=== PATIENT | male | born 1965 | race African-American/Black ===

== ENCOUNTER 2018-03-25 01:09 | Emergency (ER) | payer MEDICARE, OTHER ==
[2018-03-25 01:38] LABS: #Lymphocytes 2.3 thou/uL (1.20-3.40); #Monocytes 0.6 thou/uL (0.11-0.59); %Basophils 0.7 % (0.0-1.0); %Eosinophils 0.4 % (0.0-10.0); %Lymphocytes 32.6 % (21.0-51.0); %Monocytes 8.8 % (0.0-10.0); %Neutrophils 57.6 % (42.0-75.0); Mean Corpuscular HGB CONC 33.8 g/dL (32.0-36.0); Mean Corpuscular Hemoglobin 32.1 pg (27.0-31.0); Mean Corpuscular Volume 94.8 fL (78.0-98.0); Mean Platelet Volume 8.5 fL (7.4-10.4); Platelet Count 187 thou/uL (130-400); RBC Distribution Width 12.9 % (11.5-14.5); Red Blood Cell (RBC) Count 3.75 mill/uL (4.70-6.10); White Blood Cell (WBC) Count 6.9 thou/uL (4.8-10.8)
[2018-03-25 01:43] LABS: Prothrombin Time 12.9 SEC (12.0-14.7)
[2018-03-25 01:45] LABS: D-Dimer Test 0.95 *mcg/mL (0.27-0.43)
[2018-03-25 01:59] LABS: ALT (SGPT) 18 U/L (8-55); AST (SGOT) 27 U/L (5-34); Albumin 4.2 g/dL (3.5-5.0); Alkaline Phosphatase 66 U/L (40-150); Anion Gap 16 mmol/L (10-20); BUN (Urea Nitrogen) 17 mg/dL (8.4-25.7); Bilirubin, Total 0.5 mg/dL (0.2-1.2); CK (CPK) 137 U/L (30-200); Calc. Creatinine Clearance 0 mL/min (70-130); Calcium 8.7 mg/dL (7.8-10.44); Carbon Dioxide 17 mmol/L (22-29); Chloride 105 mmol/L (98-107); Estimated GFR-MDRD 49; Globulin 3.1 g/dL (2.4-3.5); Glucose 95 mg/dL (70-105); Protein, Total 7.3 g/dL (6.0-8.3); Sodium 134 mmol/L (136-145)
[2018-03-25 02:03] LABS: CKMB 2.4 ng/mL (0-6.6); Troponin I 0.042 ng/mL (< 0.028)
[2018-03-25] MEDS ORDERED: Nitroglycerin 0.4 MG TAB (25 Tab Bottle) ONE (02:15)
[2018-03-25] MEDS ORDERED: Enoxaparin Sodium 40 MG/0.4 ML SYRINGE ONE (02:15)
[2018-03-25] MEDS ORDERED: Furosemide 40 MG/4 ML VIAL ONE (02:15)
[2018-03-25] MEDS ORDERED: Enoxaparin Sodium 60 MG/0.6 ML SYRINGE ONE (02:16)
--- NOTE | 2018-03-25 08:58 | RAD ---
PORTABLE CHEST: Date: 03/25/18 PROVIDED CLINICAL HISTORY: Dyspnea. FINDINGS: Comparison with 01/11/17. Cardiac silhouette appears enlarged. Pulmonary vasculature is upper limits of normal. No focal consol idation, pleural fluid, or pneumothorax apparent. IMPRESSION: Cardiomegaly without evidence for an acute cardiopulmonary process. POS: [facility]
== END 2018-03-25 02:40 | disposition left against medical advice (07) ==
LOC: ERS 01:09
DX: R06.02 Shortness of breath (principal); I12.0 Hypertensive chronic kidney disease with stage 5 chronic kidney disease or end stage renal disease; N18.6 End stage renal disease; Z99.2 Dependence on renal dialysis; F17.210 Nicotine dependence, cigarettes, uncomplicated
CPT/HCPCS: 71045; 80053; 82553; 83880; 84484; 85025; 85379; 85610; 85730; 93005; 94640; 94760; 96361; 96374; J1650; J1940; J7620

== ENCOUNTER 2018-05-08 13:02 | Outpatient (CLI) | payer MEDICARE, OTHER ==
--- NOTE | 2018-05-08 14:38 | CT ---
CT ABDOMEN AND PELVIS WITHOUT IV CONTRAST: Technique: Multiple axial tomograms were obtained through the abdomen and pelvis without IV enhanceme nt. Indications: Atherosclerosis of both lower extremities. Claudication. History of kidney disease. IV c ontrast was not administered due to renal status. Comparison: None. FINDINGS: Lung bases appear clear. There is cardiomegaly. Liver, spleen, and pancreas appear unremarkable on unenhanced exam. Adrenal glands unremarkable. Kidneys show no evidence of hydronephrosis. There are tiny calcifications in the lower pole collectin g structures of the right kidney. Ureters are normal caliber. Urinary bladder is mildly distended and unremarkable. Small bowel loops normal caliber. Appendix unremarkable. Colon unremarkable. The transverse and left colon is nondistended and not adequately evaluated by CT. The aorta shows diffuse atherosclerotic calcifications. The aorta is diffusely ectatic measuring up t o 2.5 cm in AP dimension in the midabdominal aorta. In the mid and lower abdominal aorta there is neftaly dence of diffuse calcified plaque in the aorta which shows evidence of severe luminal stenosis. There is calcification of the lower abdominal aorta and visualized iliac artery with diffuse calcifie d plaque in the iliac arteries suggesting severe stenosis. IMPRESSION: 1. Diffuse atherosclerotic calcifications and ectasia involving the abdominal aorta. Calcified plaque in the mid abdominal aorta results in evidence of severe luminal narrowing. There is calcified plaqu e extending into the right renal artery suggesting stenosis and calcified plaque at the origin of the left renal artery suggesting severe stenosis. Calcified plaque in the iliacs suggests significant st enosis. MRA of the abdominal aorta might be considered if patient cannot have iodinated contrast to a ssess blood flow in the abdominal aorta. 2. Soft tissues show small calcifications in the lower pole of the right kidney. No other significant soft tissue abnormality identified on this unenhanced study. POS: [facility]
== END 2018-05-08 13:03 | disposition home or self-care (01) ==
LOC: BICCT 13:02
PROVIDERS: ATTEND Thoracic Surgery (Cardiothoracic Vascular Surgery)
DX: I70.213 Atherosclerosis of native arteries of extremities with intermittent claudication, bilateral legs (principal); I70.0 Atherosclerosis of aorta; I77.811 Abdominal aortic ectasia; I70.1 Atherosclerosis of renal artery; I70.8 Atherosclerosis of other arteries; N28.89 Other specified disorders of kidney and ureter
CPT/HCPCS: 74176

== ENCOUNTER 2019-02-25 09:35 | Inpatient (IN) | payer MEDICARE, OTHER ==
[2019-02-25] MEDS ORDERED: Furosemide 40 MG/4 ML VIAL ONE (09:45)
[2019-02-25] MEDS ORDERED: Nitroglycerin 2% Ointment 1 INCH/1 GM Packet ONE (09:45)
[2019-02-25] MEDS ORDERED: Nitroglycerin 0.4 MG TAB 1 EACH ONE (09:45)
[2019-02-25 10:20] LABS: Analyzer IN Cardio ER; Base Excess (BEa) -6.1 mEq/L (-2.0 to +3.0); Calcium, Ionized 1.09 mmol/L (1.12-1.30); Carboxyhemoglobin (COHb) 0.9 gm% (0.0-3.0); Hemoglobin (Hb) 11.9 g/dL (14.0-18.0); Potassium - ABG Lab 3.75 mmol/L (3.70-5.30); pH, Arterial 7.42 (7.35-7.45)
[2019-02-25 10:21] LABS: O2 Tension (PaO2) 57.2 mmHg (80.0-100.0)
[2019-02-25 10:36] LABS: #Basophils 0.1 thou/uL (0.0-0.2); #Lymphocytes 1.7 thou/uL (1.20-3.40); #Monocytes 0.7 thou/uL (0.11-0.59); #Neutrophils 6.3 thou/uL (1.40-6.50); %Basophils 0.8 % (0.0-1.0); %Eosinophils 0.4 % (0.0-10.0); %Lymphocytes 19.2 % (21.0-51.0); %Monocytes 7.9 % (0.0-10.0); %Neutrophils 71.7 % (42.0-75.0); Mean Corpuscular HGB CONC 32.8 g/dL (32.0-36.0); Mean Corpuscular Hemoglobin 29.9 pg (27.0-31.0); Mean Corpuscular Volume 91.2 fL (78.0-98.0); Mean Platelet Volume 7.2 fL (7.4-10.4); Platelet Count 263 thou/uL (130-400); RBC Distribution Width 15.3 % (11.5-14.5); Red Blood Cell (RBC) Count 4.02 mill/uL (4.70-6.10); White Blood Cell (WBC) Count 8.7 thou/uL (4.8-10.8)
--- NOTE | 2019-02-25 10:43 | RAD ---
Exam: Chest one view HISTORY:Chest pain Comparison: 03/25/2018 FINDINGS: Lungs: Multiple focal consolidation of the mid inferior right lung, alveolar and interstitial in appe arance. Cardiac silhouette:Enlarged Pulmonary vessels: Prominent central pulmonary vasculature Pleural Spaces: Blunted costophrenic sulci bilaterally, with flattened hemidiaphragms Pneumothorax: None Vascular calcification. Osseous abnormalities: None of acuity. IMPRESSION: Consolidation of the right lung which may relate to an atypical pneumonia. Correlate clin ically. Enlarged cardiac silhouette with vascular congestion. Correlate for evidence of CHF. Recommend follow-up to resolution.
[2019-02-25 11:01] LABS: ALT (SGPT) 15 U/L (8-55); AST (SGOT) 27 U/L (5-34); Albumin 4.4 g/dL (3.5-5.0); Alkaline Phosphatase 90 U/L (40-150); Anion Gap 23 mmol/L (10-20); BUN (Urea Nitrogen) 41 mg/dL (8.4-25.7); Bilirubin, Total 0.9 mg/dL (0.2-1.2); Calc. Creatinine Clearance 0 mL/min (70-130); Calcium 9.2 mg/dL (7.8-10.44); Carbon Dioxide 17 mmol/L (22-29); Chloride 107 mmol/L (98-107); Estimated GFR-MDRD 31; Globulin 3.3 g/dL (2.4-3.5); Glucose 146 mg/dL (70-105); Potassium 4.5 mmol/L (3.5-5.1); Protein, Total 7.7 g/dL (6.0-8.3); Sodium 142 mmol/L (136-145)
[2019-02-25 11:17] LABS: CKMB 1.9 ng/mL (0-6.6)
--- NOTE | 2019-02-25 13:18 | HP ---
CHIEF COMPLAINT: "I can't breathe and having chest pain." HISTORY OF PRESENT ILLNESS: Mr. Willoughby is a 53-year-old gentleman, who has chronic systolic as well as diastolic heart failure. His last ejection fraction was approximately less than 20% done in December of this year at [facility]. He says that he had gone to the [facility] about 2 months ago for what sounds like a CHF exacerbation. They were unable to treat him there, so he got transferred to [facility] in the [facility]. There, he says he was there for several weeks. He says that he had multiple tests done and had been placed on a Primacor drip. He says that he was going in and out of congestive heart failure and in and out of atrial fibrillation. He says that they had wanted him to be on the Primacor drip for about 60 days, and at that time, they were going to reassess him for a possible defibrillator. However, they could not find anybody to manage the drip once he was discharged, and apparently, they just discharged him home. They did put him on Entresto as a new medication and made some other adjustments in his medicines. He says he apparently had a court date that he missed because he was in the hospital, and he apparently got picked up and put in care home on the of this month. He says that once he was in care home, he did not get any of his medications and had been out of his medicines for the past few days. Apparently, he must have been in care home because he said he woke up short of breath and was asking "them to help him and they didn't." He was also noticing some pains in his chest as well. Apparently at some point, he was brought to the emergency room, where he was found to have an elevated BNP. Chest x-ray showed findings consistent with pulmonary edema, and he is being admitted for treatment of this. Currently, he is on BiPAP and he is starting to feel a little bit better, but he still has some chest discomfort. He also notes some swelling in his legs and he mentioned off and on palpitations in the past. REVIEW OF SYSTEMS: CONSTITUTIONAL: There has been no fevers or chills. No night sweats. No weight loss. HEENT: No headaches. No dizziness. No visual changes. No sore throat, rhinorrhea, neck pain. No adenopathy. PULMONARY: No hemoptysis. No cough. No wheezing. CARDIOVASCULAR: As in history of present illness. GASTROINTESTINAL: No abdominal pain. No nausea. No vomiting. No change in bowels. GENITOURINARY: No urinary frequency or hematuria. No hesitancy. NEUROLOGIC: No focal weakness or numbness. No seizures. PSYCHIATRIC: No symptoms of anxiety or depression. SKIN AND INTEGUMENT: No skin changes. No rash. ENDOCRINE: No heat or cold intolerance. PAST MEDICAL HISTORY: Significant for chronic systolic heart failure, ejection fraction was estimated at less than 20%. He also had grade 3/3 diastolic dysfunction, hypertension, chronic kidney disease, diabetes mellitus type 2, as well as peripheral vascular disease. PAST SURGICAL HISTORY: He has had hernia repair. ALLERGIES: NO KNOWN DRUG ALLERGIES. SOCIAL HISTORY: He says he lives in [facility]. He says he has a live-in provider and Home Health. He is single, no children and he is a former smoker. He says he does admit to drinking some alcohol, and occasional smokes of marijuana. FAMILY HISTORY: He says his sister recently of congestive heart failure. CURRENT MEDICATIONS: He says that they were given to the nursing staff, what was seen in the emergency room records include, 1. Amiodarone 200 mg once daily. 2. Amlodipine 10 mg once a day. 3. Bumetanide 1 mg daily. 4. Hydralazine 50 mg twice a day. 5. [place] 10/325 p.r.n. 6. Isosorbide mononitrate extended release 120 mg daily. 7. Nitrostat 0.4 sublingual p.r.n. 8. MiraLAX p.r.n. 9. Entresto. 10. Trazodone 50 mg daily. 11. Plavix 75 mg. 12. ProAir inhaler. PHYSICAL EXAMINATION: GENERAL: He is alert and oriented. He is in no acute distress. He is a bit agitated at times and will be sometimes verbally abusive, yelling out answers, etc. VITAL SIGNS: Blood pressure is 119/85, heart rate is 116, respiratory rate of 26, and he is afebrile. HEENT: Pupils are equal, round, and reactive. Extraocular muscles are intact. His sclerae are anicteric. Throat, there is no erythema, no exudates. NECK: No adenopathy. No bruits. LUNGS: He has rales throughout both lungs. CARDIOVASCULAR: He is tachycardic. His PMI is laterally displaced, and he does have a positive S3. I was not able to assess any murmurs, clicks, or rubs. ABDOMEN: Soft. It is slightly distended. It is tympanic to percussion. There is no rebound or guarding. EXTREMITIES: There is no clubbing or cyanosis. He does have 2+ pitting edema. NEUROLOGICAL: His cranial nerves are 2 through 12 are intact, and muscle strength is intact. SKIN AND INTEGUMENT: No skin changes. No rash. LABORATORY RESULTS: Chemistry; sodium is 142, potassium is 4.5, chloride is 107, CO2 is 17, BUN of 41, creatinine is 2.6, glucose is 146. BNP is 16,143. The white blood cell count is 8.7, hemoglobin is 12, hematocrit is 36.6, and platelet count is 263. IMAGING STUDIES: His chest x-ray, and this is by my reading, he has cardiomegaly, increased pulmonary vascular markings. The film was little bit rotated, and the infiltrate or airspace disease is more on the right than the left. ASSESSMENT: This is a 53-year-old gentleman, who presents with, 1. Acute respiratory failure with hypoxemia, likely as a result of acute on chronic systolic heart failure exacerbation, and this is likely due to him being without his medications for several days. Since he is requiring BiPAP, he will be admitted to the ICU. We will continue BiPAP and to continue IV Lasix. Once his medications are reconciled, we will restart them as appropriate. We will consult Cardiology. Due to the severity of his disease, he maybe a candidate for defibrillator placement at this time. 2. Hypertension. Currently, his blood pressure is stable. We will restart his medications after we start Entresto to avoid hypotension. 3. Diabetes mellitus. We will need to reconcile his medications for diabetes. I did not see any listed among his regular medications. In the meantime, we will place him on a sliding scale insulin, and he will be getting a Critical Care consult as he is being admitted to the ICU. 4. Deep vein thrombosis and gastrointestinal prophylaxis will also be provided. Job ID: [id number]
[2019-02-25] MEDS ORDERED: Dextrose 50% Abboject 50 ML SYRINGE SLOW IVP PRN (13:41)
[2019-02-25] MEDS ORDERED: hydrALAZINE 20 MG/ML VIAL SLOW IVP PRN (13:41)
[2019-02-25] MEDS ORDERED: Dextrose 5% in Water 1,000 ML IV PRN (13:41)
[2019-02-25] MEDS ORDERED: HumaLOG 300 UNITS/3 ML VIAL SC PRN ×2 (13:41)
[2019-02-25 14:28] VITALS: BMI 20.9
[2019-02-25] MEDS ORDERED: Heparin 5,000 UNITS/ML VIAL SC SCH (15:00)
[2019-02-25] MEDS: Furosemide 40 MG/4 ML VIAL SLOW IVP SCH (15:11)
[2019-02-25] MEDS: Heparin 5,000 UNITS/ML VIAL SC SCH ×2 (15:13→21:17)
--- NOTE | 2019-02-25 17:05 | CON ---
DATE OF CONSULTATION: HISTORY OF PRESENT ILLNESS: A 53-year-old gentleman, who came from the long term system today with acute respiratory distress. He is in the ICU. He is on a BiPAP. He had a chest x-ray taken, which shows pulmonary edema. He states he has been in the long term system now for several days and apparently 3 days, has not received any of his medication. He was recently seen at [facility] for cardiomyopathy. He has a LifeVest in place. He was on a Primacor drip at [facility] and started on Entresto and apparently he missed a court date of any fpc. He did medication. His BNP was 16,000. He has been in this institution many times. PAST MEDICAL HISTORY: 1. Acute on chronic congestive heart failure. 2. Renal failure. 3. Diabetes, peripheral vascular disease. MEDICATIONS: His list of medicine comes with a package, which includes: 1. Amiodarone 200 once a day. 2. Amlodipine 10. 3. Bumetanide 1 mg. 4. Hydralazine 50. 5. [place]. 6. Ismo 120. 7. Nitrostat. 8. MiraLAX. 9. Entresto. 10. Trazodone 50. 11. Plavix 75. 12. Rescue inhaler. SOCIAL HISTORY: History of tobacco abuse. Drinks some alcohol. Smokes some marijuana. REVIEW OF SYSTEMS: Otherwise unremarkable. He is cachectic. Poor dental hygiene. PHYSICAL EXAMINATION: VITAL SIGNS: Sats are 98% on a BiPAP, blood pressure 112/70, respiratory rate 18, pulse 80, afebrile. CHEST: Extensive rhonchi and crackles bilaterally. CARDIAC: Normal S1 and S2. No gallops. ABDOMEN: No masses. LABORATORY DATA: Creatinine 2.62. X-ray shows cardiomegaly, CHF. A pO2 of 57, pCO2 BiPAP. White count 18,000. Hemoglobin and hematocrit unremarkable. IMPRESSION: 1. Acute on chronic respiratory failure, congestive heart failure, decompensated because of inability to take medication in the fpc. 2. Tobacco abuse. 3. Alcohol intake. 4. Marijuana intake. I agree with present treatment. Await input from Cardiology. Continue neb treatments, supportive care. We will follow. Once improved, we will try to take him off a BiPAP. This is a 30-minute critical care time in the ICU. Job ID: [id number]
[2019-02-25] MEDS: Carvedilol 3.125 MG TAB PO SCH (17:07)
--- NOTE | 2019-02-25 23:26 | CON ---
DATE OF CONSULTATION: 02/25/2019 INDICATION FOR CONSULTATION: A 53-year-old gentleman with history of cardiomyopathy and CHF exacerbation. HISTORY OF PRESENT ILLNESS: This is a very unfortunate 53-year-old gentleman, who has a history of systolic and diastolic heart failure. His ejection fraction has been estimated at about actually less than 20%. He was recently seen at [facility] in [place] and apparently underwent an echocardiogram there, which showed ejection fraction to be severely compromised. He also had a cardiac catheterization performed, unfortunately we do not have the results of the cardiac catheterization, but it appears that he has probably had an angioplasty and possible stent placement. He has been placed on Plavix. He was noted to have significant diastolic dysfunction on the echocardiogram with a grade 3 diastolic dysfunction with significantly elevated PA pressures. The right chamber was mildly dilated. The right ventricle was mildly dilated and the heart size was not significantly, it was only mildly dilated, but left atrium was [id number] enlarged at 4.8 cm. He presented here after he was released from their facility about 2 weeks ago and apparently was then incarcerated and is now brought to our facility after he complained of increasing shortness of breath and chest discomfort. It appears that, according to him, he was not getting his medications while he was incarcerated. He was supposed to be taking amiodarone, amlodipine, bumetanide, hydralazine as well as isosorbide mononitrate, nitroglycerin. He was taking polyethylene glycol as well as Entresto, trazodone. He was taking Plavix and ProAir. Without these medications, it is possible he could have had ischemia and worsening of congestive heart failure. Certainly, if he has had a recent stent placed, he is at risk of having acute stent thrombosis without being on the Plavix. At this time, he is resting comfortably. He is on a BiPAP mask and is relatively comfortable. He did not offer any complaints to me. He denied any chest pain. His EKG shows a sinus tachycardia with a right bundle-branch block and nonspecific EKG changes. His cardiac enzymes are still indeterminate at 0.054 for the troponin. His BNP was severely elevated at 16,143. Blood sugar was 146. His MB was only 1.9. There is no indication he suffered any significant myocardial infarction at this time. We will continue to monitor the patient. Mainly, he will need to be diuresed and put back on his medications for his congestive heart failure and hopefully his O2 saturations will improve. With the BiPAP, he does not yet meet the requirements for intubation. PAST MEDICAL HISTORY: Other than what is noted above, please refer the notes dictated by the nurse practitioner. SOCIAL HISTORY: Other than what is noted above, please refer the notes dictated by the nurse practitioner. FAMILY HISTORY: Other than what is noted above, please refer the notes dictated by the nurse practitioner. REVIEW OF SYSTEMS: Other than what is noted above, please refer the notes dictated by the nurse practitioner. ALLERGIES: OTHER THAN WHAT IS NOTED ABOVE, PLEASE REFER THE NOTES DICTATED BY THE NURSE PRACTITIONER. MEDICATIONS: Other than what is noted above, please refer the notes dictated by the nurse practitioner. PHYSICAL EXAMINATION: GENERAL: Reveals an elderly, thin gentleman, who actually appears older than his stated age. VITAL SIGNS: He is somewhat hypothermic. Temperature is 97, heart rates in the 80s and shows a sinus rhythm with a right bundle-branch block. Blood pressure 122/81, respiratory rate is about 23, and O2 saturation is about 95% on the BiPAP mask at this time. HEENT: Shows the head to be normocephalic and atraumatic. I cannot hear any significant bruits. He does have upper airway noise associated with his BiPAP mask. CHEST: Has some decreased breath sounds and some mild crackles in the right base. CARDIOVASCULAR: Heart sounds are somewhat distant, but he has an S1 and S2. I cannot hear any significant S3 or S4. He has a systolic murmur at the apex. ABDOMEN: Soft and nontender. Positive bowel sounds are present. EXTREMITIES: Show 1+ lower extremity edema. Pedal pulses are difficult to palpate. NEUROLOGIC: The patient is somewhat unwilling to carry on a full examination, but in conversation, but otherwise I do not notice any gross focal motor deficits. SKIN: Warm and dry at this time. LABORATORY DATA: His creatinine is 2.6, potassium 4.5. Hematocrit 36.6, and platelet count was 263,000. Sodium was 142. As noted above, the cardiac enzymes are still indeterminate. IMPRESSION: 1. Acute respiratory failure associated with systolic as well as diastolic heart failure and gentleman who has not been taking his medications as prescribed due to being incarcerated. We will resume his medications. Diuresis will be undertaken and hopefully the patient will recover. He has a severe decrease in left ventricular systolic function, which is not new. Ejection fraction less than 20%. Eventually, will need to undergo probably an AICD implant if he is a candidate to have a LifeVest. We will need to continue to follow him. 2. Hypertension. At this time, he is under good control as soon as he was able to get him back on his routine medications and this would also we may benefit the patient for his congestive heart failure. 3. Diabetes, which will be dealt with the primary care service. 4. Probable coronary artery disease, we do not have a recent cardiac catheterization, but there is some indication that he underwent a cardiac catheterization with angioplasty, whether or not a stent was placed is unclear. We are uncertain as to which vessels nor we are uncertain the remaining details of the cardiac catheterization. We will need to obtain this information to better assist the patient. Job ID: [id number]
[2019-02-26 04:35] LABS: #Lymphocytes 1.4 thou/uL (1.20-3.40); #Monocytes 0.5 thou/uL (0.11-0.59); #Neutrophils 4.8 thou/uL (1.40-6.50); %Basophils 0.7 % (0.0-1.0); %Eosinophils 0.5 % (0.0-10.0); %Lymphocytes 20.4 % (21.0-51.0); %Monocytes 7.7 % (0.0-10.0); %Neutrophils 70.7 % (42.0-75.0); Hemoglobin 10.1 g/dL (14.0-18.0); Mean Corpuscular HGB CONC 33.7 g/dL (32.0-36.0); Mean Corpuscular Hemoglobin 30.9 pg (27.0-31.0); Mean Corpuscular Volume 91.7 fL (78.0-98.0); Mean Platelet Volume 6.9 fL (7.4-10.4); Platelet Count 202 thou/uL (130-400); RBC Distribution Width 15.1 % (11.5-14.5); Red Blood Cell (RBC) Count 3.26 mill/uL (4.70-6.10); White Blood Cell (WBC) Count 6.8 thou/uL (4.8-10.8)
[2019-02-26 04:48] LABS: Anion Gap 17 mmol/L (10-20); BUN (Urea Nitrogen) 43 mg/dL (8.4-25.7); Calc. Creatinine Clearance 24 mL/min (70-130); Carbon Dioxide 25 mmol/L (22-29); Chloride 104 mmol/L (98-107); Estimated GFR-MDRD 32; Glucose 88 mg/dL (70-105); Potassium 3.9 mmol/L (3.5-5.1); Sodium 142 mmol/L (136-145)
[2019-02-26] MEDS: Furosemide 40 MG/4 ML VIAL SLOW IVP SCH ×2 (06:16→14:29)
[2019-02-26] MEDS: Acetaminophen 325 MG TAB PO PRN ×2 (06:16→17:21)
[2019-02-26] MEDS: Carvedilol 3.125 MG TAB PO SCH ×2 (08:20→17:17)
[2019-02-26] MEDS: Amiodarone 200 MG TAB PO SCH (08:20)
[2019-02-26] MEDS: Heparin 5,000 UNITS/ML VIAL SC SCH ×3 (08:20→20:53)
--- NOTE | 2019-02-26 08:21 | CON ---
DATE OF CONSULTATION: PRIMARY CARE PHYSICIAN: Dr. Mata. PRIMARY ILLUMINATOR: Dr. Longoria at the [facility]. Primary lunchroom monitor here at [place] is going to be Dr. Reyes. REASON FOR CARDIOLOGY CONSULT: CHF exacerbation with BNP more than 16,000. HISTORY OF PRESENT ILLNESS: Mr. Willoughby is a 53-year-old male with significant history of chronic combined heart failure, chronic kidney disease, hypertension, diabetes type 2, and peripheral vascular disease. The patient was hospitalized for combined heart failure at [facility] since December to February 2019. According to the patient, at this moment, the patient cannot give any information due to severe shortness of breath, wears BiPAP. The patient's information was obtained from the patient's medical record from [facility] in [place]. The patient was discharged with Entresto twice a day with LifeVest, but he was not taking those medicine for last 3 days since the patient was in the [facility]. He started having worsening of shortness of breath since yesterday. After the patient was released from the [facility], the patient was transferred to [facility] [place], [place], for worsening of shortness of breath and complained of chest pain. The patient was found to have BNP more than 16,000. At this moment, the patient denied chest pain, but the patient has been really having hard time to talk due to the severe dyspnea on mild exertion, but according to the patient's record from [facility], the patient had a 2D echo on January 05, 2019, with EF less than 20%, grade 3 diastolic dysfunction, SPAP 45 to 50 mmHg, mild RVE, severely enlarged LA, mild mitral valve regurgitation, mild to moderate tricuspid regurgitation, and mild pulmonary valve regurgitation. According to the record, the patient underwent a cardiac catheterization on January 07, 2019; however, there is no record for the results. However, since the patient is not on antiplatelet medication, the patient might not have any intervention with a cardiac catheterization at that time. The patient's chest x-ray on February 25, shows possible atypical pneumonia, enlarged cardiac silhouette with vascular congestion, correlate for the evidence of CHF. PAST MEDICAL HISTORY: Chronic systolic and diastolic heart failure, hypertension, chronic kidney disease, diabetes type 2, and PVD. PAST SURGICAL HISTORY: Hernia repair. FAMILY HISTORY: The patient's sister due to congestive heart failure. SOCIAL HISTORY: He is single. No children. He is an ex-smoker. He admits to drinking some alcohol and occasional marijuana smoking. ALLERGIES: HE HAS NO KNOWN DRUG ALLERGIES. CURRENT MEDICATIONS: 1. Amiodarone 200 mg once a day. 2. Amlodipine 10 mg once a day. 3. Bumetanide 1 mg twice a day. 4. Hydralazine 100 mg 3 times a day. 5. Hydrocodone with acetaminophen 10/325 every 6 hours as needed. 6. Isosorbide 120 mg once a day. 7. Nitroglycerin 0.4 sublingual as needed. 8. MiraLAX once a day as needed. 9. twice a day. 10. Trazodone 50 mg half tablet once a day. 11. Plavix 75 mg once a day. 12. ProAir as needed for wheezing. REVIEW OF SYSTEMS: Noncontributory due to severe shortness of breath at this moment. PHYSICAL EXAMINATION: VITAL SIGNS: Heart rate about sinus tachycardia 90s to 110s. GENERAL: The patient is alert and oriented x4. The patient is really having difficulty breathing at this moment with BiPAP. HEENT: Normocephalic and atraumatic. Eyes, extraocular muscle movement intact. ENT and mouth, unable to exam due to the BiPAP. Ears, no discharge from bilateral ears. No JVD. NECK: Supple. Normal range of motion. LUNGS: Coarse and rales throughout both lungs. CARDIOVASCULAR: Regular rate and rhythm. Normal S1 and S2. There is no S3 or S4. No significant murmur, hives, or thrill noted. EXTREMITIES: 2+ pulses in the bilateral upper extremities. Unable to examine the lower extremities since the patient refused. No edema from observation, again the patient refused to let palpate the patient's lower extremity at this moment. ABDOMEN: Unable to exam at this moment since the patient refused to palpate in the stomach. SKIN: Warm and dry. No lesion. Arrhythmia noticed. Rash noted. NEUROLOGIC: The patient is alert and oriented x4, nonfocal. PSYCHIATRIC: The patient is easy to get agitated and throws things on the floor. LABORATORY DATA: WBC 8.7, hemoglobin 12.0, hematocrit 36.6, platelets 263. ABGs show a pH 7.42, pCO2 27, PO2 57.2, bicarb 17. Sodium 142, potassium 4.5, BUN 41, creatinine 2.62, glucose 146. AST 27, ALT 15. Troponin 0.054. [place] [address]. DIAGNOSTIC DATA: The patient had a stress test done in January 2017, showed no evidence of reversible ischemia with EF 30%. ASSESSMENT AND PLAN: 1. [id number] combined heart failure. The patient's echocardiogram in December 2018, shows EF of less than 20% and grade 3 diastolic dysfunction. At this moment, the patient is on Lasix 40 mg IV push twice a day. At this moment, we would like to go ahead to order a beta-pushpa for this patient for congestive heart failure management. Once the patient's creatinine and renal function is stable, we would like to go ahead to start Entresto for this patient. We would like to continue to monitor the patient's kidney function at this moment. 2. Hypertension. The patient's blood pressure is tending to be higher. We would like to go ahead to start beta-pushpa for this patient. We would like to continue to monitor. 3. Acute kidney insufficiency on chronic kidney disease. The patient may need a kindergarten paraprofessional consult for worsening of kidney function. He was seen by Dr. Zepeda in December 2016. 4. Diabetes mellitus, type 2, which is managed by primary care doctor. He is on before meals and at bedtime blood glucose check, on sliding scale insulin. Thank you very much for allowing the Cardiology Service to participate in the care of this patient. We will follow along the patient's care team and make further recommendations as appropriate. ASSESSMENT AND PLAN: Possible atrial fibrillation. The patient is on amiodarone 200 mg once a day. He is not on any anticoagulant or aspirin at this moment according to the patient's home medication; however, the patient was discharged from [facility] in [place] with amiodarone 200 mg once a day, which is going to resume this from today to prevent recurrent atrial fibrillation. Job ID: [id number]
--- NOTE | 2019-02-26 08:33 | PRG ---
DATE OF SERVICE: 02/26/2019 SUBJECTIVE: Garcia Willoughby this morning is awake, alert, responsive, no distress, off his BiPAP. OBJECTIVE: VITAL SIGNS: Saturations are 99% on 2 L, pulse 86, respirations 16, and blood pressure 110/80. His I's and O's have been consistently negative. CHEST: With crackles. CARDIAC: Normal S1, S2. No gallops. ABDOMEN: No masses. LABORATORY DATA: White count is normal. H and H unremarkable. Platelet count is normal. Creatinine is 2.52. His chest x-ray shows improvement in his CHF, marked cardiomegaly. IMPRESSION: 1. Respiratory failure, requiring BiPAP, improved. 2. Tobacco abuse. 3. History of substance abuse in the past. 4. Renal failure. PLAN: Continue cardiac care. Supportive care. Eventually, he can be transferred out of the ICU. Job ID: [id number]
--- NOTE | 2019-02-26 09:23 | RAD ---
PORTABLE AP CHEST: Date: 02/26/19 HISTORY: Ventilator. Follow-up evaluation. COMPARISON: 02/25/19. FINDINGS: The cardiac silhouette remains enlarged. The interstitial and alveolar opacities in the right perihil ar and right lung base, which are greater at the right lung base, have improved when compared to the prior exam. Findings may be related to improvement in pneumonia versus improvement in asymmetric pulm onary edema. Pulmonary vasculature is within normal limits. Vascular calcifications seen in thoracic aorta. No other interval change. IMPRESSION: 1. Improvement in interstitial and alveolar opacities in the right mid lung zone and right lung base which may be related to improvement in pneumonia or improvement in asymmetric pulmonary edema. Nella nued follow-up to complete resolution is recommended. 2. Cardiomegaly. POS: OFF
--- NOTE | 2019-02-26 11:18 | PDOC.HOSPP ---
- Subjective Encounter Date: 02/26/19 Encounter Time: 11:16 Subjective: Mr. Willoughby was seen today in follow-up of CHF exacerbation. He is off BiPAP. He says he feels much better. He denies cheat pain or dyspnea, and says the swelling has gone down in his legs. - Objective Vital Signs & Weight: Vital Signs (12 hours) Temp Pulse Resp Pulse Ox 02/26/19 08:00 98.6 F 02/26/19 07:46 99 02/26/19 07:44 86 17 99 02/26/19 04:00 98.5 F 02/25/19 23:59 97.7 F Weight Weight 111 lb 1.808 oz Most Recent Monitor Data Heart Rate from ECG 85 NIBP 93/65 NIBP BP-Mean 74 Respiration from ECG 32 SpO2 100 I&O: 02/25/19 02/26/19 02/27/19 06:59 06:59 06:59 Intake Total 655 270 Output Total 2800 400 Balance -2145 -130 Result Diagrams: 02/26/19 03:56 02/26/19 03:56 Additional Labs: Accuchecks 02/26/19 02/25/19 02/25/19 06:23 21:18 16:30 POC Glucose 91 117 H 110 ROS - Medication Medications: Active Medications Generic Name Dose Route Start Last Admin Trade Name Freq PRN Reason Stop Dose Admin Acetaminophen 650 mg 02/25/19 13:41 02/26/19 06:16 Tylenol PO 650 mg Q4H PRN Administration Headache/Fever/Mild Pain (1-3) Albuterol/Ipratropium 3 ml 02/25/19 19:00 02/26/19 07:44 Duoneb NEB 3 ml [id number] ANNE Administration Amiodarone HCl 200 mg 02/26/19 09:00 02/26/19 08:20 Cordarone PO 200 mg DAILY ANNE Administration Carvedilol 3.125 mg 02/25/19 17:00 02/26/19 08:20 Coreg PO 3.125 mg BID-WM ANNE Administration Furosemide 40 mg 02/25/19 14:00 02/26/19 06:16 Lasix SLOW IVP 40 mg 0600,1400 ANNE Administration Heparin Sodium (Porcine) 5,000 units 02/25/19 15:00 02/26/19 08:20 Heparin SC 5,000 units TID ANNE Administration - Exam Eye: PERRL, anicteric sclera Neck: supple, symmetric, no JVD, no thyromegaly Heart: RRR, no murmur (+ S3) Respiratory: CTAB, no wheezes, no rales, no ronchi, normal chest expansion Gastrointestinal: soft, non-tender, non-distended, normal bowel sounds, no palpable masses Extremities: no cyanosis, no clubbing, 1+ LE edema Skin: normal turgor, no lesions, no rashes Hosp A/P (1) Acute on chronic systolic heart failure Code(s): I50.23 - ACUTE ON CHRONIC SYSTOLIC (CONGESTIVE) HEART FAILURE Status : Acute (2) Acute respiratory failure with hypoxemia Code(s): J96.01 - ACUTE RESPIRATORY FAILURE WITH HYPOXIA Status: Acute (3) Chronic kidney disease, stage 3 Code(s): N18.3 - CHRONIC KIDNEY DISEASE, STAGE 3 (MODERATE) Status: Chronic (4) HTN (hypertension) Code(s): I10 - ESSENTIAL (PRIMARY) HYPERTENSION Status: Chronic Qualifiers: Hypertension type: essential hypertension - Plan * Acute respiratory failure with Hypoxemia due to CHF- improved after diureses * Acute on chronic systolic heart failure- as above * Discussed with Dr. Campbell- will await more information from [facility] this will determine how to proceed * HTN-blood pressure is low normal * CKD- 3 stable * Patient says he is NOT diabetic- will discontinue accuchecks * Stable to move out of the ICU
[2019-02-27] MEDS: Furosemide 40 MG/4 ML VIAL SLOW IVP SCH ×2 (05:57→14:12)
[2019-02-27] MEDS: Clopidogrel Bisulfate 75 MG TAB PO SCH (09:36)
[2019-02-27] MEDS: Carvedilol 3.125 MG TAB PO SCH ×2 (09:36→17:36)
[2019-02-27] MEDS: Amiodarone 200 MG TAB PO SCH (09:36)
[2019-02-27] MEDS: Heparin 5,000 UNITS/ML VIAL SC SCH ×3 (09:36→21:05)
[2019-02-27 10:00] LABS: Anion Gap 15 mmol/L (10-20); BUN (Urea Nitrogen) 48 mg/dL (8.4-25.7); Calc. Creatinine Clearance 22 mL/min (70-130); Calcium 8.7 mg/dL (7.8-10.44); Carbon Dioxide 26 mmol/L (22-29); Chloride 101 mmol/L (98-107); Estimated GFR-MDRD 32; Glucose 92 mg/dL (70-105); Sodium 138 mmol/L (136-145)
--- NOTE | 2019-02-27 11:19 | PRG ---
DATE OF SERVICE: 02/27/2019 SUBJECTIVE: This morning, he is awake, alert, and responsive. Denies any shortness of breath, pain, or discomfort. OBJECTIVE: VITAL SIGNS: Temperature 98, pulse 85, respiratory rate 16, saturations 96% on room air, blood pressure 130/80. CHEST: No wheezing or crackles. CARDIAC: Normal S1 and S2. No gallops. ABDOMEN: No mass. LABORATORY DATA: Creatinine 2.5. ASSESSMENT: Cardiomyopathy, respiratory failure, renal failure. PLAN: He has much improved. Continue aggressive cardiac care. Pulmonary will follow at a distance. Please call as needed. Job ID: [id number] MTDD
--- NOTE | 2019-02-27 11:26 | PDOC.CTH ---
Cardiology Progress Note - Subjective The pt seen and examined. No overnight events. No cardiac complaints. - Objective Vital Signs Temp Pulse Pulse Pulse Resp BP BP 02/27/19 11:18 98.6 F 81 20 02/27/19 09:08 100 88 134/80 100/65 02/27/19 08:06 98.8 F 85 16 02/27/19 08:05 02/27/19 04:00 98.8 F 83 18 02/27/19 00:00 02/26/19 23:50 97.7 F 75 18 BP BP Pulse Ox 02/27/19 11:18 102/77 99 02/27/19 09:08 02/27/19 08:06 106/66 95 02/27/19 08:05 95 02/27/19 04:00 98/67 98 02/27/19 00:00 97 02/26/19 23:50 103/72 98 Weight 104 lb 4.8 oz 02/26/19 02/27/19 02/28/19 06:59 06:59 06:59 Intake Total 655 1180 Output Total 2800 1190 670 Balance -2145 -10 -670 - Physical Examination General/Neuro: alert & oriented x3 Neck: no JVD present Lungs: other: (diminished at bases) Heart: RRR Abdomen: soft Extremities: other: (No edema) - Labs Result Diagrams: 02/26/19 03:56 02/27/19 09:30 Troponin/CKMB CK-MB (CK-2) 1.9 ng/mL (0-6.6) 02/25/19 09:55 Troponin I 0.054 ng/mL (< 0.028) H 02/25/19 09:55 - Assessment/Plan 1. Acute on chronic combined HF - stable with RA; On Coreg 3.125mg BID and Entresto 24/26 mg BID; On Lasix 40mg IV BID which will be changed to PO BID. 2. SHAHRAM on CKD stage 3 - no changed 3. Parox Afib - remains in SR with Amiodarone 200mg qd and Heparin 5000 units TID 4. HTN - stable with current med 5. DM type 2 - managed by PCP; however, the pt stated he is not diabetic MAR reviewed * Echo on 01/05/2019 at [facility] with EF 20%, grade III dd, SPAP 45-50mmHg, mild RVE, severely dilated LA, mild MR, mild-mod TR, and mild NC * The pt stated he underwent LHC at [facility]; however, he did not receive stents. - why on Plavix? Review of Systems - Review of Systems Constitutional: reports: no symptoms reported EENTM: reports: no symptoms reported Respiratory: reports: no symptoms reported Cardiac (ROS): reports: no symptoms reported ABD/GI: reports: no symptoms reported
[2019-02-27] MEDS ORDERED: Furosemide 40 MG TAB PO SCH ×2 (14:00)
--- NOTE | 2019-02-27 18:09 | PDOC.HOSPP ---
- Subjective Encounter Date: 02/27/19 Encounter Time: 18:07 Subjective: Mr. Willoughby was seen today in follow-up of CHF exacerbation. He does not have any new complaints. He says he is breathing better, and denies chest pain. - Objective Vital Signs & Weight: Vital Signs (12 hours) Temp Pulse Pulse Pulse Resp BP BP 02/27/19 15:31 98.6 F 75 20 02/27/19 11:18 98.6 F 81 20 02/27/19 09:08 100 88 134/80 100/65 02/27/19 08:06 98.8 F 85 16 02/27/19 08:05 BP Pulse Ox 02/27/19 15:31 105/75 99 02/27/19 11:18 102/77 99 02/27/19 09:08 02/27/19 08:06 106/66 95 02/27/19 08:05 95 Weight Weight 104 lb 4.8 oz Most Recent Monitor Data Heart Rate from ECG 75 NIBP 106/64 NIBP BP-Mean 78 Respiration from ECG 23 SpO2 100 I&O: 02/26/19 02/27/19 02/28/19 06:59 06:59 06:59 Intake Total 655 1180 Output Total 2800 1190 820 [facility] -2145 -10 -820 Result Diagrams: 02/26/19 03:56 02/27/19 09:30 Additional Labs: Accuchecks 02/27/19 02/26/19 06:04 20:35 POC Glucose 103 135 H ROS - Medication Medications: Active Medications Generic Name Dose Route Start Last Admin Trade Name Freq PRN Reason Stop Dose Admin Acetaminophen 650 mg 02/25/19 13:41 02/26/19 17:21 Tylenol PO 650 mg Q4H PRN Administration Headache/Fever/Mild Pain (1-3) Albuterol/Ipratropium 3 ml 02/25/19 19:00 02/27/19 13:14 Duoneb NEB Not Given [id number] ANNE Amiodarone HCl 200 mg 02/26/19 09:00 02/27/19 09:36 Cordarone PO 200 mg DAILY ANNE Administration Carvedilol 3.125 mg 02/25/19 17:00 02/27/19 17:36 Coreg PO 3.125 mg BID-WM ANNE Administration Clopidogrel Bisulfate 75 mg 02/27/19 09:00 02/27/19 09:36 Plavix PO 75 mg DAILY ANNE Administration Furosemide 40 mg 02/25/19 14:00 02/27/19 14:12 Lasix SLOW IVP 02/27/19 23:59 40 mg 0600,1400 ANNE Administration Heparin Sodium (Porcine) 5,000 units 02/25/19 15:00 02/27/19 14:12 Heparin SC 5,000 units TID ANNE Administration Sacubitril/Valsartan 1 tab 02/27/19 09:00 02/27/19 09:55 Entresto 24 Mg-26 Mg Tablet PO 1 tab BID ANNE Administration - Exam Eye: PERRL, anicteric sclera Heart: RRR, no murmur (+ S3 gallop) Respiratory: CTAB, no wheezes, no rales, no ronchi, normal chest expansion Gastrointestinal: soft, non-tender, non-distended, normal bowel sounds Extremities: no cyanosis, no clubbing (trace pedal edema), 1+ LE edema Hosp A/P (1) Acute on chronic systolic heart failure Code(s): I50.23 - ACUTE ON CHRONIC SYSTOLIC (CONGESTIVE) HEART FAILURE Status : Acute (2) Acute respiratory failure with hypoxemia Code(s): J96.01 - ACUTE RESPIRATORY FAILURE WITH HYPOXIA Status: Acute (3) Chronic kidney disease, stage 3 Code(s): N18.3 - CHRONIC KIDNEY DISEASE, STAGE 3 (MODERATE) Status: Chronic (4) HTN (hypertension) Code(s): I10 - ESSENTIAL (PRIMARY) HYPERTENSION Status: Chronic Qualifiers: Hypertension type: essential hypertension - Plan * Acute respiratory failure with Hypoxemia due to CHF- improving- Lasix has been transitioned to p.o. * Acute on chronic systolic heart failure- as above * HTN-blood pressure is stable * CKD- 3 stable * Continue as per Cardiology recommendations
[2019-02-28 05:51] LABS: Anion Gap 15 mmol/L (10-20); BUN (Urea Nitrogen) 42 mg/dL (8.4-25.7); Calc. Creatinine Clearance 24 mL/min (70-130); Carbon Dioxide 26 mmol/L (22-29); Chloride 105 mmol/L (98-107); Estimated GFR-MDRD 36; Glucose 92 mg/dL (70-105); Potassium 3.8 mmol/L (3.5-5.1); Sodium 142 mmol/L (136-145)
[2019-02-28 07:50] VITALS: BP 119/80; TEMP 98.9
[2019-02-28] MEDS ORDERED: Furosemide 40 MG TAB PO SCH (09:00)
[2019-02-28] MEDS: Amiodarone 200 MG TAB PO SCH (09:22)
[2019-02-28] MEDS: Clopidogrel Bisulfate 75 MG TAB PO SCH (09:22)
[2019-02-28] MEDS: Carvedilol 3.125 MG TAB PO SCH (09:22)
[2019-02-28] MEDS: Heparin 5,000 UNITS/ML VIAL SC SCH (09:23)
--- NOTE | 2019-02-28 21:39 | DIS ---
DATE OF ADMISSION: 02/25/2019 DATE OF DISCHARGE: 02/28/2019 FINAL DIAGNOSES AT THE TIME OF DISCHARGE: 1. Acute on chronic systolic heart failure. 2. Acute respiratory failure with hypoxemia. 3. Chronic kidney disease, stage 3. 4. Hypertension. CONSULTANTS: 1. Dr. Nguyen, Pulmonary Service. 2. Dr. Campbell, Cardiovascular Service. HOSPITAL COURSE: The patient is a 53-year-old male, who was admitted to the hospital with shortness of breath and some chest discomfort. Apparently, he has a chronic systolic and diastolic heart failure with ejection fraction estimated at 20% based on echocardiogram, which was done in December 2018 at [facility]. At the time of emergency room visit, his electrolytes were within normal limits. His CO2 was 17, creatinine was 2.6. BNP 16,143. White cell count was 8.7, hemoglobin 12, and hematocrit 36.6 with platelet count of 263,000. The chest x-ray showed cardiomegaly and pulmonary vascular congestion. The patient got admitted to the hospital. He was admitted to ICU because he was placed on BiPAP. He was started on IV Lasix. His Entresto was continued. The next day, he was taking of his BiPAP and the patient was seen by metal pickling equipment operator and portfolio administrator. Diuresis was continued. Followup chest x-ray showed improvement in interstitial and alveolar opacities in the right mid lung zone and right lung base, which was secondary to asymmetric pulmonary edema. He responded quickly and very well to the point that he was to be able to switch to p.o. Lasix. He was continued on his amiodarone. We have learned that he underwent left heart catheterization at [facility], however, he did not receive stents. It was not clear why he was on Plavix. His echo from December 2018 at [facility] showed LVEF of 20% grade 3 diastolic dysfunction, severely dilated left atrium, mild MR, mild moderate tricuspid regurgitation, and mild [place]. The patient was advised to stay in the hospital and get further evaluation for possible LifeVest and later AICD, but he said that he spent too much time in this hospital and he left against medical advice. Job ID: [id number]
--- NOTE | 2019-03-02 14:45 | EKG ---
Test Reason : Blood Pressure : / mmHG Vent. Rate : 130 BPM Atrial Rate : 130 BPM P-R Int : 142 ms QRS Dur : 142 ms QT Int : 310 ms P-R-T Axes : 106 -48 100 degrees QTc Int : 456 ms Sinus tachycardia Right bundle branch block Left anterior fascicular block Bifascicular block Left ventricular hypertrophy with repolarization abnormality Cannot rule out Septal infarct , age undetermined Abnormal ECG Confirmed by VILLA CASON, ANUP ([id number]), video effects editor PARISH ISABEL ([id number]) on 03/02/2019 2:44:41 PM Referred By: Confirmed By:ANUP DRIVER MD
== END 2019-02-28 09:31 | disposition left against medical advice (07) | DRG 291 ==
LOC: ERS 09:35 → CCU 11:40 → 2SE 02-26 18:17
PROVIDERS: ADMIT Internal Medicine; ATTEND Internal Medicine
PROC: 5A09357 Assistance with Respiratory Ventilation, Less than 24 Consecutive Hours, Continuous Positive Airway Pressure (ICD-10-PCS; principal; 2019-02-25)
DX: I13.0 Hypertensive heart and chronic kidney disease with heart failure and stage 1 through stage 4 chronic kidney disease, or unspecified chronic kidney disease (principal); J96.01 Acute respiratory failure with hypoxia; I50.23 Acute on chronic systolic (congestive) heart failure; N17.9 Acute kidney failure, unspecified; E11.22 Type 2 diabetes mellitus with diabetic chronic kidney disease; I48.91 Unspecified atrial fibrillation; I73.9 Peripheral vascular disease, unspecified; F10.10 Alcohol abuse, uncomplicated; I25.10 Atherosclerotic heart disease of native coronary artery without angina pectoris; N18.3 Chronic kidney disease, stage 3 (moderate); I42.9 Cardiomyopathy, unspecified; I48.0 Paroxysmal atrial fibrillation; Z98.890 Other specified postprocedural states; Z87.891 Personal history of nicotine dependence; Z79.02 Long term (current) use of antithrombotics/antiplatelets; Z79.899 Other long term (current) drug therapy
CPT/HCPCS: 36415; 36416; 71045; 80048; 80053; 82553; 82805; 83880; 84484; 85025; 93005; 93798; 94640; 94660; 96374; J1644; J1940; J7620

== ENCOUNTER 2019-12-04 08:02 | Observation (INO) | payer MEDICARE, MEDICAID ==
[2019-12-04 08:24] LABS: #Lymphocytes 1.4 thou/uL (1.20-3.40); #Monocytes 0.5 thou/uL (0.11-0.59); #Neutrophils 4.5 thou/uL (1.40-6.50); %Basophils 0.2 % (0.0-1.0); %Eosinophils 0.5 % (0.0-10.0); %Lymphocytes 20.9 % (21.0-51.0); %Monocytes 8.4 % (0.0-10.0); %Neutrophils 69.9 % (42.0-75.0); Hemoglobin 12.3 g/dL (14.0-18.0); Mean Corpuscular HGB CONC 31.1 g/dL (32.0-36.0); Mean Corpuscular Hemoglobin 30.9 pg (27.0-31.0); Mean Corpuscular Volume 99.3 fL (78.0-98.0); Mean Platelet Volume 9.5 fL (7.4-10.4); Platelet Count 137 thou/uL (130-400); RBC Distribution Width 16.5 % (11.5-14.5); Red Blood Cell (RBC) Count 3.99 mill/uL (4.70-6.10); White Blood Cell (WBC) Count 6.5 thou/uL (4.8-10.8)
--- NOTE | 2019-12-04 08:24 | RAD ---
Exam: Chest one view HISTORY:Code 3. Chest pain. Shortness of breath. Comparison: 02/26/2019 FINDINGS: Pacing device: Right-sided transvenous defibrillator with lead positioned right atrium, right ventric le and coronary sinus. Cardiac silhouette:Cardiomegaly. Aorta: Atherosclerosis Pulmonary vessels: Normal Costophrenic angles: Clear LUNGS: Scattered reticulonodular opacities. Pneumothorax: None Osseous abnormalities: No acute osseous abnormalities Incidentals: Vascular stent projects over the proximal left upper extremity IMPRESSION: Cardiomegaly. Reticular nodular opacities. Volume overload. Atherosclerosis.
[2019-12-04 08:44] LABS: ALT (SGPT) Less than 7 U/L (8-55); AST (SGOT) 25 U/L (5-34); Albumin 3.7 g/dL (3.5-5.0); Alkaline Phosphatase 166 U/L (40-110); Anion Gap 18 mmol/L (10-20); BUN (Urea Nitrogen) 27 mg/dL (8.4-25.7); Bilirubin, Total 1.2 mg/dL (0.2-1.2); Calc. Creatinine Clearance 0 mL/min (70-130); Calcium 8.8 mg/dL (7.8-10.44); Carbon Dioxide 27 mmol/L (22-29); Chloride 97 mmol/L (98-107); Estimated GFR-MDRD 16; Globulin 3.4 g/dL (2.4-3.5); Glucose 75 mg/dL (70-105); Protein, Total 7.1 g/dL (6.0-8.3); Sodium 138 mmol/L (136-145)
[2019-12-04 09:10] LABS: CKMB 2.2 ng/mL (0-6.6)
[2019-12-04 11:58] LABS: Troponin I 0.096 ng/mL (< 0.028)
[2019-12-04 15:19] LABS: Troponin I 0.213 ng/mL (< 0.028)
[2019-12-04] MEDS ORDERED: Acetaminophen 325 MG TAB PO PRN ×2 (15:28→17:55)
[2019-12-04] MEDS ORDERED: Ondansetron ODT 4 MG TAB SL PRN (15:28)
[2019-12-04] MEDS ORDERED: Ondansetron PF 4 MG/2 ML Vial IVP PRN (15:28)
[2019-12-04] MEDS ORDERED: Nitroglycerin 0.4 MG TAB (25 Tab Bottle) PO PRN (17:54)
[2019-12-04] MEDS ORDERED: Calcium Carbonate 500 MG ChewTAB PO PRN (17:55)
[2019-12-04] MEDS ORDERED: Nitroglycerin 2% Ointment 1 INCH/1 GM Packet TOP SCH (18:00)
[2019-12-04] MEDS ORDERED: Labetalol HCl 100 MG/20 ML VIAL SLOW IVP PRN (19:18)
--- NOTE | 2019-12-04 19:30 | HP ---
PRIMARY CARE PHYSICIAN: Dr. Maat. CHIEF COMPLAINT: Chest discomfort. PRIMARY SURVEILLANCE SENSOR OFFICER: Dr. Katelyn Manzano. HISTORY OF PRESENT ILLNESS: The patient is a 54-year-old male with congestive heart failure with recent AICD placement; end-stage renal disease, on hemodialysis, presented to the emergency room with above complaints. The chest discomfort occurred when he was at the dialysis center. It was substernal, moderate in intensity, felt like tightness without any radiation. He had shortness of breath along with lightheadedness. The pain resolved after aspirin and nitroglycerin by EMS. He denies any associated nausea, vomiting, diaphoresis, or syncope. He denies recent immobilization or travel. PAST MEDICAL HISTORY: 1. Hypertension. 2. Congestive heart failure, status post recent AICD. 3. End-stage renal disease, on hemodialysis. 4. Diabetes mellitus, type 2. 5. Chronic diastolic heart failure. 6. Peripheral vascular disease. PAST SURGICAL HISTORY: 1. Hernia repair. 2. Recent AICD placement. 3. Dialysis access. 4. Hernia repair. ALLERGIES: NO KNOWN DRUG ALLERGIES. CURRENT HOME MEDICATIONS: The patient is unable to recall any of his home medications. Family will try to obtain from the pharmacy. SOCIAL HISTORY: The patient currently lives at home with his family. Denies any current use of smoking, alcohol, or drug use. He is a former smoker. FAMILY HISTORY: Positive for congestive heart failure in his sister. REVIEW OF SYSTEMS: All other review of systems was reviewed and was found negative. PHYSICAL EXAMINATION: VITAL SIGNS: Temperature 97.6, pulse rate of 111, respiration of 18, blood pressure of 138/101, and O2 saturation 95% on room air. GENERAL: A 54-year-old male in no apparent distress. HEENT: Head, atraumatic and normocephalic. Sclerae are anicteric. Moist mucous membranes. No oral lesion. NECK: Supple. No JVD. No carotid bruit. LUNGS: Clear to auscultation bilaterally except for few rales at bases. There were scattered rhonchi. No wheezing. HEART: S1 and S2 present. Regular rate and rhythm. No rubs or gallops. ABDOMEN: Soft and nontender. Bowel sounds present. No rebound or guarding. No costovertebral angle tenderness. EXTREMITIES: No edema or calf tenderness. NEUROLOGIC: Grossly nonfocal. Moves all 4 extremities. PSYCHIATRY: Alert, awake, and oriented x3. SKIN: Warm and dry. LYMPH NODES: No palpable lymph nodes in the neck. PERIPHERAL VASCULAR: Radial pulses palpable bilaterally. MUSCULOSKELETAL: No joint swelling or tenderness. LABORATORY FINDINGS: CBC showed WBC 6.5 with hemoglobin 12.3, hematocrit 39.7, and platelet 137. Chemistry showed sodium 138, potassium 4, chloride 97, bicarb 27, BUN of 27, creatinine 4.7. Troponin 0.1 with a repeat troponin of 0.213. IMAGING STUDIES: Chest x-ray by my review was negative for infiltrate or edema. It showed cardiomegaly. EKG by my review showed paced rhythm. IMPRESSION: 1. Chest discomfort, rule out acute coronary syndrome. 2. Paroxysmal atrial fibrillation. 3. End-stage renal disease, on hemodialysis. 4. Chronic systolic and diastolic heart failure. 5. Hypertension. 6. Diabetes mellitus type 2, diet controlled. 7. Chronic anemia due to renal insufficiency. 8. Recent automatic implantable cardioverter defibrillator placement. PLAN: The patient will be monitored in the telemetry unit. We will try to obtain accurate list of medications. We will consult Cardiology. We will keep n.p.o. past midnight. Recheck troponin in a.m. Resume selected home medications from previous discharge summary. The patient understands the above plan of care. Job ID: [id number]
[2019-12-04] MEDS: Isosorbide Dinitrate 20 MG TAB PO SCH (20:48)
[2019-12-04] MEDS: Famotidine 20 MG TAB PO SCH (20:48)
[2019-12-04] MEDS: Atorvastatin Calcium 40 MG TAB PO SCH (20:48)
[2019-12-04] MEDS ORDERED: Heparin 5,000 UNITS/ML VIAL SC SCH (21:00)
[2019-12-04] MEDS: Carvedilol 3.125 MG TAB PO SCH (22:30)
[2019-12-05 04:45] LABS: Anion Gap 17 mmol/L (10-20); BUN (Urea Nitrogen) 51 mg/dL (8.4-25.7); Calc. Creatinine Clearance 8 mL/min (70-130); Calcium 7.7 mg/dL (7.8-10.44); Carbon Dioxide 26 mmol/L (22-29); Chloride 96 mmol/L (98-107); Estimated GFR-MDRD 11; Glucose 97 mg/dL (70-105); Potassium 5.4 mmol/L (3.5-5.1); Sodium 134 mmol/L (136-145)
[2019-12-05 04:50] LABS: #Basophils 0.1 thou/uL (0.0-0.2); #Lymphocytes 1.2 thou/uL (1.20-3.40); #Monocytes 0.8 thou/uL (0.11-0.59); #Neutrophils 4.3 thou/uL (1.40-6.50); %Basophils 0.8 % (0.0-1.0); %Eosinophils 0.5 % (0.0-10.0); %Lymphocytes 18.6 % (21.0-51.0); %Monocytes 12.2 % (0.0-10.0); %Neutrophils 67.9 % (42.0-75.0); Hemoglobin 11.4 g/dL (14.0-18.0); Mean Corpuscular HGB CONC 30.4 g/dL (32.0-36.0); Mean Corpuscular Hemoglobin 30.6 pg (27.0-31.0); Mean Platelet Volume 9.6 fL (7.4-10.4); Platelet Count 123 thou/uL (130-400); RBC Distribution Width 16.5 % (11.5-14.5); Red Blood Cell (RBC) Count 3.71 mill/uL (4.70-6.10); White Blood Cell (WBC) Count 6.3 thou/uL (4.8-10.8)
[2019-12-05 05:09] LABS: CKMB 1.7 ng/mL (0-6.6)
[2019-12-05] MEDS ORDERED: Aspirin 325 mg Enteric Coated Tablet PO SCH (09:00)
[2019-12-05] MEDS: Amiodarone 200 MG TAB PO SCH (09:33)
[2019-12-05] MEDS: Isosorbide Dinitrate 20 MG TAB PO SCH ×3 (09:34→20:53)
[2019-12-05] MEDS: Amlodipine 10 MG TAB PO SCH (09:34)
[2019-12-05] MEDS: Carvedilol 3.125 MG TAB PO SCH ×2 (10:22→20:53)
[2019-12-05] MEDS: Aspirin 81 mg Enteric Coated Tablet PO SCH (10:22)
[2019-12-05 13:10] VITALS: BMI 18.1
--- NOTE | 2019-12-05 15:36 | EKG ---
Test Reason : CP Blood Pressure : / mmHG Vent. Rate : 110 BPM Atrial Rate : 110 BPM P-R Int : 000 ms QRS Dur : 152 ms QT Int : 428 ms P-R-T Axes : 003 089 -06 degrees QTc Int : 579 ms Ventricular-paced rhythm Abnormal ECG Confirmed by HANSA PARDO ([id number]), legal editor PARISH ISABEL ([id number]) on 12/05/2019 3:35:46 PM Referred By: Confirmed By:HANSA PARDO
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
[2019-12-05] MEDS ORDERED: Communication Order-Pharmacy FS SCH (18:45)
[2019-12-05] MEDS: Atorvastatin Calcium 40 MG TAB PO SCH (20:53)
[2019-12-05] MEDS: Famotidine 20 MG TAB PO SCH (20:53)
--- NOTE | 2019-12-06 00:27 | CON ---
DATE OF CONSULTATION: HISTORY OF PRESENT ILLNESS: Garcia Willoughby is a 54-year-old black male with a very complicated history. He has end-stage renal disease and is on dialysis, although for 1 to 2 years he was able to be off the dialysis. In October 2018, he had a myocardial infarction, went to [facility]. He was sent to [facility] in [place] and he states he was there for 3 months. It sounds as if heart catheterization was attempted and he had severely stenosed iliofemoral arteries and ended up going through the radial artery. He is uncertain what was found or what was done. He did have episodes of paroxysmal atrial fibrillation. He ultimately was placed on Entresto. His ejection fraction around that time was 12%. I initially saw him on October 24, 2019. He underwent echocardiogram, which revealed ejection fraction of 15% to 20% with aortic sclerosis, mild aortic insufficiency , severe mitral regurgitation, and moderate tricuspid regurgitation. He was referred to Dr. Alexis for defibrillator placement. Six days ago, he underwent placement of a biventricular defibrillator in the right subclavian vein (dialysis access in the left arm). He states that since placement of the biventricular defibrillator,he has noted improvement in his stamina and he feels less short of breath. Yesterday at dialysis, he began to notice left upper chest pressure associated with mild shortness of breath. He instructed the dialysis center that he was having this chest discomfort 10 to 15 minutes after it started. He was sent to the emergency room and received four baby aspirins and sublingual nitroglycerin and he states his pain resolved. Total duration of the pain was approximately 1 hour. At the present time, he denies any symptoms. PAST MEDICAL HISTORY: Renal failure, end-stage renal disease on dialysis, hypertension, atrial fibrillation, diabetes, hypercholesterolemia, and peripheral vascular disease. OPERATIONS: ICD placement, hernia repair, and dialysis access. MEDICATIONS: 1. Amiodarone 200 daily. 2. Norvasc 10 mg daily. 3. Carvedilol 3.125 b.i.d. 4. Atorvastatin 40 daily. 5. Isosorbide dinitrate 20 t.i.d. 6. Entresto 24/26 b.i.d. ALLERGIES: NONE. SOCIAL HISTORY: He continues to smoke 1 or 2 cigarettes per day. REVIEW OF SYSTEMS: Unremarkable except as noted above. PHYSICAL EXAMINATION: VITAL SIGNS: Blood pressure 123/83 and pulse of 83. HEENT: PERRL. NECK: Supple. CHEST: Clear. CARDIAC: S1 and S2 normal without any S3, S4, or murmurs. ABDOMEN: Normal bowel sounds without tenderness or organomegaly. EXTREMITIES: Revealed no clubbing, cyanosis, or edema. NEUROLOGIC: Grossly intact. MUSCULOSKELETAL: Revealed no palpable chest wall tenderness. LABORATORY DATA: EKG reveals atrial sensing and ventricular pacing. Sodium 134 , potassium 5.4, chloride 96, carbon dioxide 26, BUN 51, and creatinine 6.68. Troponin I is up to 0.213. It is of note that one month ago, his LDL was 52. IMPRESSION: 1. Prolonged chest discomfort. He always has chronically elevated troponin I and I feel that this is probably a non-ST segment elevation myocardial infarction type 2. 2. Unknown coronary anatomy. 3. Severe peripheral vascular disease with a 95% blockage in both his leg arteries according to the patient. 4. Hypertension. 5. Hypercholesterolemia. 6. Smoker. PLAN: It is recommended that Mr. Willoughby undergo cardiac catheterization since I have been attempting to get records from [facility] for over a month and still have not heard anything. Risks of catheterization were discussed including , myocardial infarction, dye reaction, vascular injury, CVA, transfusion, limb loss, renal loss, etc. Also risk of intervention with PTCA and stent placement were discussed including , myocardial infarction, emergent CABG, restenosis, stent thrombosis, vessel perforation, etc. He has no history of gastrointestinal bleed or stroke and has no upcoming surgical procedures and so it is felt drug-eluting stent would be his best option. Job ID: [id number] [facility]
--- NOTE | 2019-12-06 01:53 | CON ---
DATE OF CONSULTATION: CONSULTING PHYSICIAN: Katelyn Manzano MD REQUESTING PHYSICIANS: Dr. Vaughn and Dr. Campbell. REASON FOR CONSULTATION: Need for maintenance dialysis. IMPRESSION: 1. End-stage renal disease, Monday, Monday, Monday dialysis. 2. Mild hyperkalemia. 3. Chest pain. 4. Cardiomyopathy. PLAN: 1. There is no emergent indication for renal replacement therapy today. Therefore, we will defer this patient to his regular Monday, Monday, Monday scheduled dialysis. 2. Further management to be dependent on the clinical course. HISTORY OF PRESENT ILLNESS: History is that of a 54-year-old gentleman with congestive heart failure status post recent AICD placement with end-stage renal disease, who his treatment by 45 minutes because of chest pain 01/16, associated with some shortness of breath. At this time of history taking, the patient does not complain of shortness of breath and patient seems to be stable . The need for continued renal replacement therapy necessitated this renal consultation. PAST MEDICAL HISTORY: Significant for hypertension, congestive heart failure, end-stage renal disease, type 2 diabetes, chronic diastolic heart failure, and peripheral vascular disease. ALLERGIES: NO KNOWN DRUG ALLERGIES. MEDICATIONS: Currently on 3seventy. SOCIAL HISTORY: Lives at home. No alcohol. No illicit drug use. Remote tobacco use. REVIEW OF SYSTEMS: As documented in the body of the history. All other systems were reviewed and found not to be significantly related to present illness. PHYSICAL EXAMINATION: GENERAL: The patient was found not to be in any obvious distress. Noted with the following vital signs. VITAL SIGNS: Afebrile, temperature 98.2, pulse 91, respiratory rate of 14, O2 saturation of 97% with blood pressure 111/72. HEENT: Unremarkable. CARDIOVASCULAR SYSTEM: First and second heart sounds were heard. RESPIRATORY SYSTEM: Clear to auscultation. DIGESTIVE SYSTEM: Revealed a benign abdomen with positive bowel sounds. EXTREMITIES: No peripheral edema. SKIN: No new gross rash. LYMPHATICS: No peripheral lymphadenopathy. SUMMARY: A 54-year-old gentleman with end-stage renal disease, who presented here with chest pain status post recent AICD placement. Thank you for this consultation. We will follow with you. Job ID: [id number]
[2019-12-06 04:29] LABS: Hemoglobin 11.1 g/dL (14.0-18.0); Mean Corpuscular HGB CONC 30.7 g/dL (32.0-36.0); Mean Corpuscular Hemoglobin 30.3 pg (27.0-31.0); Mean Corpuscular Volume 98.7 fL (78.0-98.0); Mean Platelet Volume 9.5 fL (7.4-10.4); Platelet Count 114 thou/uL (130-400); Red Blood Cell (RBC) Count 3.66 mill/uL (4.70-6.10); White Blood Cell (WBC) Count 6.3 thou/uL (4.8-10.8)
[2019-12-06 04:40] LABS: Anion Gap 19 mmol/L (10-20); BUN (Urea Nitrogen) 74 mg/dL (8.4-25.7); Calc. Creatinine Clearance 6 mL/min (70-130); Calcium 7.9 mg/dL (7.8-10.44); Carbon Dioxide 28 mmol/L (22-29); Chloride 91 mmol/L (98-107); Estimated GFR-MDRD 8; Glucose 100 mg/dL (70-105); Potassium 4.8 mmol/L (3.5-5.1); Sodium 133 mmol/L (136-145)
[2019-12-06] MEDS: Aspirin 81 mg Enteric Coated Tablet PO SCH (05:10)
[2019-12-06] MEDS: Amiodarone 200 MG TAB PO SCH (05:10)
[2019-12-06] MEDS: Carvedilol 3.125 MG TAB PO SCH ×2 (05:11→21:50)
[2019-12-06] MEDS: Amlodipine 10 MG TAB PO SCH (05:11)
[2019-12-06] MEDS: Isosorbide Dinitrate 20 MG TAB PO SCH ×3 (05:11→21:51)
[2019-12-06] MEDS ORDERED: Heparin 10,000 UNITS/1 ML VIAL ONE (07:34)
[2019-12-06] MEDS ORDERED: Verapamil 5 MG/2 ML VIAL ONE (07:35)
[2019-12-06] MEDS ORDERED: Nitroglycerin 100MG/250ML BOT 250 ML ONE (07:35)
[2019-12-06] MEDS ORDERED: Nitroglycerin 0.4 MG TAB (25 Tab Bottle) SL PRN (09:48)
[2019-12-06] MEDS ORDERED: Sodium Chloride 0.9% 200 ML IV PRN (09:48)
[2019-12-06] MEDS ORDERED: Acetaminophen/Codeine 30-300mg Tablet PO PRN ×2 (09:48)
[2019-12-06] MEDS ORDERED: Iopamidol 370 76% 100 ML VIAL ONE (10:50)
[2019-12-06] MEDS: Atorvastatin Calcium 40 MG TAB PO SCH (21:50)
[2019-12-06] MEDS: Famotidine 20 MG TAB PO SCH (21:51)
[2019-12-06 21:54] VITALS: BP 125/80; TEMP 97.9
--- NOTE | 2019-12-06 23:00 | PRG ---
DATE OF SERVICE: 12/06/2019 SUBJECTIVE: The patient was seen and examined. Noted with the following vital signs. OBJECTIVE: VITAL SIGNS: Afebrile, temperature 97.9, pulse 96, respiratory rate 16, O2 saturation of 97% with a blood pressure of . HEENT: Unremarkable. CARDIOVASCULAR SYSTEM: First and second heart sounds were heard.. RESPIRATORY SYSTEM: Clear to auscultation. DIGESTIVE SYSTEM: Revealed a benign abdomen. EXTREMITIES: No peripheral edema. SKIN: No new gross rash. LYMPHATICS: No peripheral lymphadenopathy. IMPRESSION: 1. End-stage renal disease, on hemodialysis Monday, Monday, Monday. 2. Chest pain, status post cardiac catheterization. 3. Cardiomyopathy, status post recent AICD placement. PLAN: 1. The patient to be dialyzed today in accordance with his outpatient schedule dialysis. 2. From a renal standpoint, the patient is due for discharge status post dialysis. Job ID: [id number]
--- NOTE | 2019-12-07 03:17 | DIS ---
DATE OF ADMISSION: 12/04/2019 DATE OF DISCHARGE: 12/06/2019 DISCHARGE DIAGNOSES: 1. Chest pain, possibly secondary to angina. 2. Elevated troponin. 3. Hyperkalemia. 4. Hyponatremia. 5. End-stage renal disease. CONSULTATIONS: 1. Dr. Mendez Mercado of Cardiology. 2. Dr. Katelyn Manzano with Nephrology. PROCEDURES: Cardiac cath on 12/03. BRIEF HISTORY OF PRESENT ILLNESS: This 54-year-old male, with a past medical history of ESRD, who presented to the emergency room with chest pain. The patient stated that his chest pain started during dialysis. He said that it was moderate in intensity without any radiation. His pain resolved after he was given aspirin and nitroglycerin in the EMS. His EKG showed a paced rhythm. Patient was noted to have elevated troponin of 0.100. He was admitted for further workup. HOSPITAL COURSE: Chest pain, possibly secondary to angina: Patient underwent cardiac cath on 12/03, which showed [id number] 3-vessel disease with 50% in the proximal LAD, 95% stenosis of the distal LAD. His RCA was mid 40%. His OM1 was 40%. Patient did not have any interventions done. He was resumed on all of his home medications. He should follow up with Dr. Mercado in a few weeks. ESRD: Patient was noted to have incomplete dialysis prior to admission. He underwent dialysis again on the . He will resume his normal Monday, Monday, Monday schedule. DISCHARGE PHYSICAL EXAMINATION: VITAL SIGNS: Temperature 98.3, heart rate 77, respiratory rate 18, O2 saturation 98% on room air, and blood pressure 104/76. GENERAL: Patient is alert, awake, and oriented x3. CVS: Regular rate and rhythm with no murmurs, rubs, or gallops. LUNGS: Clear to auscultation bilaterally. ABDOMEN: Positive bowel sounds, soft, nontender, and nondistended. EXTREMITIES: No edema. PERTINENT LABORATORY DATA: BMP 12/05: Sodium 133, potassium 4.8, chloride 91, carbon dioxide 28, and creatinine 8.24. Troponin I: 0.100, 0.096, 0.213, 0.091. Chest x-ray 12/03: Shows cardiomegaly. Reticular nodular opacities. Volume overload. Echo 12/05: Shows EF of 15% to 20%. Severe MR. Severe TR. Mild pulmonic regurg. CBC 12/05: Shows hemoglobin 11.1, MCV 98.7, and platelet count 114. BMP 12/05: As mentioned above. DISCHARGE CONDITION: Stable. ACTIVITY: As tolerated. DIET: Renal diet. DISCHARGE INSTRUCTIONS: Patient is to follow up with his PCP in a week. He should follow up with his addictions counselor, Dr. Mercado. He should follow up with Dr. Zepeda for resumption of his dialysis. He should have a 2 L fluid restriction. Job ID: [id number] MTDD
== END 2019-12-06 20:35 | disposition home or self-care (01) ==
LOC: ERS 08:02 → ERHOLD 12:17 → 2NO 15:27
PROVIDERS: ADMIT Internal Medicine; ATTEND Internal Medicine
PROC: 4A023N7 Measurement of Cardiac Sampling and Pressure, Left Heart, Percutaneous Approach (ICD-10-PCS; principal; 2019-12-06)
PROC: B2111ZZ Fluoroscopy of Multiple Coronary Arteries using Low Osmolar Contrast (ICD-10-PCS; 2019-12-06)
DX: I25.10 Atherosclerotic heart disease of native coronary artery without angina pectoris (principal); I25.84 Coronary atherosclerosis due to calcified coronary lesion; R07.89 Other chest pain; R79.89 Other specified abnormal findings of blood chemistry; E87.5 Hyperkalemia; E87.1 Hypo-osmolality and hyponatremia; I13.2 Hypertensive heart and chronic kidney disease with heart failure and with stage 5 chronic kidney disease, or end stage renal disease; E11.22 Type 2 diabetes mellitus with diabetic chronic kidney disease; N18.6 End stage renal disease; I50.42 Chronic combined systolic (congestive) and diastolic (congestive) heart failure; D63.1 Anemia in chronic kidney disease; E11.51 Type 2 diabetes mellitus with diabetic peripheral angiopathy without gangrene; I70.203 Unspecified atherosclerosis of native arteries of extremities, bilateral legs; I48.0 Paroxysmal atrial fibrillation; E78.00 Pure hypercholesterolemia, unspecified; F17.210 Nicotine dependence, cigarettes, uncomplicated; F10.11 Alcohol abuse, in remission; I25.2 Old myocardial infarction; I42.9 Cardiomyopathy, unspecified; Z79.899 Other long term (current) drug therapy; Z95.810 Presence of automatic (implantable) cardiac defibrillator; Z99.2 Dependence on renal dialysis
CPT/HCPCS: 36600 ×2; 71045; 80048 ×2; 80053; 82553 ×2; 84484 ×3; 85025 ×2; 85027; 93005; 93306; 93458; 93571; 94760; 99285; C1769 ×2; C1887; G0378 ×4; 36415; 90935; G0257; J0153; J1644; Q9967

== ENCOUNTER 2020-01-07 09:40 | Emergency (ER) | payer MEDICARE, OTHER ==
[2020-01-07 10:06] LABS: #Eosinphils 0.1 thou/uL (0.0-0.7); #Lymphocytes 0.9 thou/uL (1.20-3.40); #Monocytes 0.8 thou/uL (0.11-0.59); #Neutrophils 4.4 thou/uL (1.40-6.50); %Basophils 0.6 % (0.0-1.0); %Eosinophils 0.9 % (0.0-10.0); %Lymphocytes 14.5 % (21.0-51.0); %Monocytes 12.4 % (0.0-10.0); %Neutrophils 71.5 % (42.0-75.0); Hemoglobin 11.1 g/dL (14.0-18.0); Mean Corpuscular HGB CONC 32.2 g/dL (32.0-36.0); Mean Corpuscular Hemoglobin 32.1 pg (27.0-31.0); Mean Corpuscular Volume 99.7 fL (78.0-98.0); Mean Platelet Volume 8.7 fL (7.4-10.4); Platelet Count 135 thou/uL (130-400); RBC Distribution Width 16.9 % (11.5-14.5); Red Blood Cell (RBC) Count 3.46 mill/uL (4.70-6.10); White Blood Cell (WBC) Count 6.2 thou/uL (4.8-10.8)
--- NOTE | 2020-01-07 10:13 | RAD ---
Exam: Chest one view HISTORY:Chest pain Comparison: 12/04/2019 FINDINGS: Pacing device: Stable left-sided defibrillator. Cardiac silhouette:Cardiomegaly. Aorta: Stable atherosclerosis. Pulmonary vessels: Normal Costophrenic angles: Clear LUNGS: No masses or consolidation. Pneumothorax: None Osseous abnormalities: No acute osseous abnormalities. Stable stent projects of the left axilla. IMPRESSION: 1. Cardiomegaly without evidence of congestive heart failure. 2. Atherosclerosis.
[2020-01-07] MEDS ORDERED: Ketorolac Tromethamine 30 MG/ML VIAL ONE (10:34)
[2020-01-07 10:35] LABS: ALT (SGPT) 16 U/L (8-55); AST (SGOT) 21 U/L (5-34); Albumin 3.5 g/dL (3.5-5.0); Alkaline Phosphatase 187 U/L (40-110); Anion Gap 16 mmol/L (10-20); BUN (Urea Nitrogen) 43 mg/dL (8.4-25.7); CK (CPK) 70 U/L (30-200); Calc. Creatinine Clearance 0 mL/min (70-130); Calcium 7.8 mg/dL (7.8-10.44); Carbon Dioxide 27 mmol/L (22-29); Chloride 98 mmol/L (98-107); Estimated GFR-MDRD 12; Globulin 2.7 g/dL (2.4-3.5); Glucose 127 mg/dL (70-105); Lipase 88 U/L (8-78); Potassium 4.2 mmol/L (3.5-5.1); Protein, Total 6.2 g/dL (6.0-8.3); Sodium 137 mmol/L (136-145)
== END 2020-01-07 11:20 | disposition home or self-care (01) ==
LOC: ERS 09:40
DX: I13.2 Hypertensive heart and chronic kidney disease with heart failure and with stage 5 chronic kidney disease, or end stage renal disease (principal); I50.9 Heart failure, unspecified; N18.6 End stage renal disease; D63.1 Anemia in chronic kidney disease; I48.91 Unspecified atrial fibrillation; D50.9 Iron deficiency anemia, unspecified; Z79.899 Other long term (current) drug therapy
CPT/HCPCS: 36415; 71045; 80053; 82550; 82553; 83690; 83880; 84484; 85025; 93005; 96374; J1885

== ENCOUNTER 2021-01-29 09:46 | Emergency (ER) | payer MEDICARE, MEDICAID ==
[~2021-01-29 09:46] MED LIST: Heparin 10,000 UNITS/ 10 ML VIAL ONE
[2021-01-29 10:44] LABS: #Eosinphils 0.1 thou/uL (0.0-0.7); #Lymphocytes 1.1 thou/uL (1.20-3.40); #Neutrophils 6.1 thou/uL (1.40-6.50); %Basophils 0.2 % (0.0-1.0); %Eosinophils 1.6 % (0.0-10.0); %Lymphocytes 13.1 % (21.0-51.0); %Monocytes 11.9 % (0.0-10.0); %Neutrophils 73.2 % (42.0-75.0); Hemoglobin 12.6 g/dL (14.0-18.0); Mean Corpuscular HGB CONC 31.7 g/dL (32.0-36.0); Mean Corpuscular Hemoglobin 32.9 pg (27.0-31.0); Mean Platelet Volume 8.3 fL (7.4-10.4); Platelet Count 187 thou/uL (130-400); RBC Distribution Width 16.2 % (11.5-14.5); Red Blood Cell (RBC) Count 3.84 mill/uL (4.70-6.10); White Blood Cell (WBC) Count 8.3 thou/uL (4.8-10.8)
[2021-01-29 11:04] LABS: ALT (SGPT) 11 U/L (8-55); AST (SGOT) 23 U/L (5-34); Albumin 3.7 g/dL (3.5-5.0); Alkaline Phosphatase 212 U/L (40-110); Anion Gap 19 mmol/L (10-20); BUN (Urea Nitrogen) 72 mg/dL (8.4-25.7); Bilirubin, Total 1.3 mg/dL (0.2-1.2); Calc. Creatinine Clearance 0 mL/min (70-130); Calcium 8.9 mg/dL (7.8-10.44); Carbon Dioxide 26 mmol/L (22-29); Chloride 97 mmol/L (98-107); Globulin 3.2 g/dL (2.4-3.5); Glucose 87 mg/dL (70-105); Potassium 5.9 mmol/L (3.5-5.1); Protein, Total 6.9 g/dL (6.0-8.3); Sodium 136 mmol/L (136-145)
[2021-01-29] MEDS ORDERED: Calcium Chloride 1 GM/10 ML Abboject SYRINGE ONE (12:41)
[2021-01-29] MEDS ORDERED: Dextrose 50% Abboject 50 ML SYRINGE ONE (12:41)
[2021-01-29] MEDS ORDERED: Sodium Bicarbonate 2.5 MEQ/5 ML VIAL ONE (12:41)
[2021-01-29] MEDS ORDERED: Sodium Bicarb 50 MEQ/50 ML Abboject 8.4% SYRINGE ONE (12:42)
[2021-01-29] MEDS ORDERED: Lidocaine 1% w/Epinephrine 1:100K 20 ML VIAL ONE (13:14)
[2021-01-29] MEDS ORDERED: Heparin 10,000 UNITS/ 10 ML VIAL ONE (13:14)
[2021-01-29] MEDS ORDERED: Bupivacaine PF 0.5% 30 ML VIAL ONE (13:14)
[2021-01-29] MEDS ORDERED: Sodium Chloride 0.9% 20 ML ONE (13:15)
[2021-01-29] MEDS ORDERED: Fentanyl 100 MCG/2 ML VIAL ONE (13:18)
[2021-01-29] MEDS ORDERED: Insulin Regular 300 UNITS/3 ML VIAL ONE (13:29)
[2021-01-29 14:18] LABS: SARS-CoV-2 NAA Rapid Test Not Detected (NotDetected)
[2021-01-29] MEDS ORDERED: Lidocaine 1% PF 5 ML VIAL ONE (14:38)
[2021-01-29] MEDS ORDERED: PROPOFOL 200 MG/20 ML VIAL ONE (14:38)
== END 2021-01-29 20:27 | disposition home or self-care (01) ==
LOC: ERS 09:46
PROC: 0JH63XZ Insertion of Tunneled Vascular Access Device into Chest Subcutaneous Tissue and Fascia, Percutaneous Approach (ICD-10-PCS; principal; 2021-01-29)
PROC: 05HN33Z Insertion of Infusion Device into Left Internal Jugular Vein, Percutaneous Approach (ICD-10-PCS; 2021-01-29)
DX: T80.89XA Other complications following infusion, transfusion and therapeutic injection, initial encounter (principal); I13.2 Hypertensive heart and chronic kidney disease with heart failure and with stage 5 chronic kidney disease, or end stage renal disease; I50.9 Heart failure, unspecified; N18.6 End stage renal disease; E87.5 Hyperkalemia; D50.9 Iron deficiency anemia, unspecified; I48.91 Unspecified atrial fibrillation; F17.210 Nicotine dependence, cigarettes, uncomplicated; Z87.19 Personal history of other diseases of the digestive system
CPT/HCPCS: 36561; 71045; 80053; 85025; 93005; 96374; 96375; 99285; C1752; U0002; U0005; 36415; 90935; G0257; J0690; J1644; J1815; J2704; J3010; S0020

== ENCOUNTER 2021-06-24 23:48 | Emergency (ER) | payer MEDICARE, MEDICAID ==
[2021-06-25] MEDS ORDERED: HYDROcodone/Acetaminophen 5/325 mg Tablet ONE (00:11)
[2021-06-25 00:39] LABS: ALT (SGPT) 19 U/L (8-55); AST (SGOT) 24 U/L (5-34); Albumin 3.2 g/dL (3.5-5.0); Alkaline Phosphatase 156 U/L (40-110); Anion Gap 26 mmol/L (10-20); BUN (Urea Nitrogen) 52 mg/dL (8.4-25.7); Bilirubin, Total 1.5 mg/dL (0.2-1.2); Calc. Creatinine Clearance 0 mL/min (70-130); Calcium 8.7 mg/dL (7.8-10.44); Carbon Dioxide 18 mmol/L (22-29); Chloride 93 mmol/L (98-107); Globulin 3.4 g/dL (2.4-3.5); Glucose 78 mg/dL (70-105); Potassium 5.5 mmol/L (3.5-5.1); Protein, Total 6.6 g/dL (6.0-8.3); Sodium 131 mmol/L (136-145)
[2021-06-25 00:45] LABS: #Lymphocytes 1.1 thou/uL (1.20-3.40); #Monocytes 0.8 thou/uL (0.11-0.59); %Basophils 0.4 % (0.0-1.0); %Eosinophils 0.4 % (0.0-10.0); %Lymphocytes 13.9 % (21.0-51.0); %Monocytes 9.8 % (0.0-10.0); %Neutrophils 75.5 % (42.0-75.0); Hemoglobin 12.5 g/dL (14.0-18.0); Mean Corpuscular Hemoglobin 33.6 pg (27.0-31.0); Mean Platelet Volume 9.2 fL (7.4-10.4); Platelet Count 143 thou/uL (130-400); RBC Distribution Width 17.8 % (11.5-14.5); Red Blood Cell (RBC) Count 3.72 mill/uL (4.70-6.10)
[2021-06-25 00:46] LABS: Anisocytosis SLIGHT = 6-15 cells (100X) (0-5/hpf); MDiff Complete? YES; Macrocytosis SLIGHT = 6-15 cells (100X) (0-5/hpf)
== END 2021-06-25 02:34 | disposition home or self-care (01) ==
LOC: ERS 23:48
DX: M54.50 Low back pain, unspecified (principal); I50.9 Heart failure, unspecified; I48.91 Unspecified atrial fibrillation; N18.9 Chronic kidney disease, unspecified; D63.1 Anemia in chronic kidney disease; Z99.2 Dependence on renal dialysis; F17.210 Nicotine dependence, cigarettes, uncomplicated
CPT/HCPCS: 36415; 71045; 72100; 80053; 85025

== ENCOUNTER 2021-08-18 08:50 | Emergency (ER) | payer MEDICARE, MEDICAID | END 2021-08-18 09:50 | disposition home or self-care (01) | LOC: ERS 08:50 | DX: R07.89 Other chest pain (principal); I50.9 Heart failure, unspecified; I48.91 Unspecified atrial fibrillation; N18.9 Chronic kidney disease, unspecified; D63.1 Anemia in chronic kidney disease; F17.210 Nicotine dependence, cigarettes, uncomplicated; Z99.2 Dependence on renal dialysis; Z79.899 Other long term (current) drug therapy | CPT/HCPCS: 71045; 93005; 94760 ==

== ENCOUNTER 2021-08-30 21:02 | Emergency (ER) | payer MEDICARE, OTHER ==
[2021-08-30] MEDS ORDERED: Calcium Chloride 1 GM/10 ML Abboject SYRINGE ONE (21:04)
[2021-08-30] MEDS ORDERED: Dextrose 50% Abboject 50 ML SYRINGE ONE (21:04)
[2021-08-30] MEDS ORDERED: Sodium Bicarb 50 MEQ/50 ML Abboject 8.4% SYRINGE ONE (21:04)
[2021-08-30] MEDS ORDERED: EPINEPHrine 1 MG/10 ML Abboject SYRINGE ONE (21:04)
== END 2021-08-30 21:18 | disposition expired ==
LOC: ERS 21:02
DX: I46.9 Cardiac arrest, cause unspecified (principal); I50.9 Heart failure, unspecified; I48.91 Unspecified atrial fibrillation; D64.9 Anemia, unspecified; I49.8 Other specified cardiac arrhythmias; F17.210 Nicotine dependence, cigarettes, uncomplicated; E87.5 Hyperkalemia; N18.6 End stage renal disease; Z99.2 Dependence on renal dialysis
CPT/HCPCS: 36680; 71045; 92950; 94002; 96374; 96375; 96376; J0171